=== PATIENT | male | born 1990 ===

== ENCOUNTER 2017-04-25 03:37 | Emergency (ER) | payer OTHER ==
[2017-04-25 03:46] VITALS: BP 143/80; PULSE 117; RESP 18; TEMP 97.8; O2SAT 100
--- NOTE | 2017-04-25 03:52 | C.PDOC ---
History Of Present Illness 26 year old male is brought to the ED by EMS after being found in [place] laying on the ground. On the ED patient admitted to drinking alcohol, states he was in [place]. Patient denies any injury, trauma, fall, SI/HI, hallucinations. Time Seen by Provider: 04/25/17 03:46 Chief Complaint (Nursing): Substance Abuse History Per: Patient History/Exam Limitations: no limitations Onset/Duration Of Symptoms: Hrs Current Symptoms Are (Timing): Gone Suicide/Self Injury Attempted (Context): None Modifying Factor(s): Alcohol Associated Symptoms: denies: Depression, Suicidal Thoughts, Suicidal Plan Involuntary Hold By: None Recent travel outside of the [place]: No Additional History Per: Patient Past Medical History Reviewed: Historical Data, Nursing Documentation, Vital Signs Vital Signs: Last Vital Signs Temp 97.8 F 04/25/17 03:42 Pulse 117 H 04/25/17 03:42 Resp 18 04/25/17 03:42 BP 143/80 04/25/17 03:42 Pulse Ox 100 04/25/17 03:55 - Medical History PMH: No Chronic Diseases Surgical History: No Surg Hx Family History: States: Unknown Family Hx - Social History Hx Alcohol Use: Yes Hx Substance Use: No - Immunization History Hx Tetanus Toxoid Vaccination: No Hx Influenza Vaccination: No Hx Pneumococcal Vaccination: No Review Of Systems Constitutional: Negative for: Fever, Chills Cardiovascular: Negative for: Chest Pain Respiratory: Negative for: Cough, Shortness of Breath Gastrointestinal: Negative for: Nausea, Vomiting, Abdominal Pain Skin: Negative for: Rash Neurological: Negative for: Weakness, Numbness Psych: Negative for: Depression, Suicidal ideation Physical Exam - Physical Exam Appears: Non-toxic, Other (Intoxicated) Skin: Normal Color, Warm, Dry Head: Atraumatic, Normacephalic Nose: No Discharge, No Deformity Oral Mucosa: Moist Neck: Normal ROM, Supple Chest: Symmetrical Cardiovascular: Rhythm Regular, No Murmur Respiratory: Normal Breath Sounds, No Rales, No Rhonchi, No Wheezing Gastrointestinal/Abdominal: Soft, No Tenderness Extremity: Normal ROM, No Calf Tenderness, No Deformity, No Swelling Neurological/Psych: Oriented x3, Normal Speech (slurred), Normal Cognition Gait: Steady ED Course And Treatment O2 Sat by Pulse Oximetry: 100 (On RA) Pulse Ox Interpretation: Normal Medical Decision Making Medical Decision Making: Contacted the patient's sister who says she will come to pick him up, patient has a stable gait enough to be d/c. Disposition - Disposition Disposition: HOME/ ROUTINE Disposition Time: 04:15 Condition: IMPROVED Forms: [facility] (Malay) - Clinical Impression Clinical Impression: Alcohol abuse - Scribe Statement The provider has reviewed the documentation as recorded by the Scribe Devin Zaragoza All medical record entries made by the Scribe were at my direction and personally dictated by me. I have reviewed the chart and agree that the record accurately reflects my personal performance of the history, physical exam, medical decision making, and the department course for this patient. I have also personally directed, reviewed, and agree with the discharge instructions and disposition.
== END 2017-04-25 04:16 | disposition home or self-care (01) ==
LOC: C.ER 03:37
DX: F10.10 Alcohol abuse, uncomplicated (principal); Y90.9 Presence of alcohol in blood, level not specified

== ENCOUNTER 2018-09-13 09:05 | Outpatient (CLI) | payer BC | END 2018-09-13 09:06 | disposition home or self-care (01) | LOC: C.RADH 09:05 ==